=== PATIENT | female | born 1985 | race African-American/Black ===

== ENCOUNTER 2021-10-03 17:01 | Emergency (ER) | payer MEDICAID, OTHER ==
[~2021-10-03] VITALS: Ht 170.2 cm; Wt 72.6 kg
--- NOTE | 2021-10-03 17:11 | NUR ---
BIBS FOR C/O SOB X TODAY, RAN OUT OF INHALER. REQUESTING MED REFILL. IN ROOM AIR. RESPIRATION REGULAR AND UNLABORED. WILL CONTINUE TO MONITOR THE PATIENT.
[2021-10-03] MEDS ORDERED: PRED20TA PO (17:17)
[2021-10-03] MEDS ORDERED: ALBU18HF2 INH (17:17)
[2021-10-03] MEDS ORDERED: predniSONE 20 MG TABLET ONE (17:20)
[2021-10-03] MEDS ORDERED: IPRATROPIUM NEB FS 0.5 MG/2.5 ML AMPUL.NEB ONE (17:20)
[2021-10-03] MEDS ORDERED: ALBUTEROL FS 2.5 MG/3 ML VIAL.NEB ONE (17:20)
[2021-10-03] MEDS ORDERED: IPRATROPIUM NEB FS 0.5 MG/2.5 ML AMPUL.NEB NEB ONE (17:30)
[2021-10-03] MEDS ORDERED: ALBUTEROL FS 2.5 MG/3 ML VIAL.NEB NEB ONE (17:30)
[2021-10-03] MEDS ORDERED: predniSONE 20 MG TABLET PO ONE (17:30)
--- NOTE | 2021-10-03 18:22 | NUR ---
Patient discharged to home in stable condition. Written and verbal after care instructions given. Patient verbalizes understanding of instruction.
[2021-10-03 18:23] VITALS: BP 126/84
== END 2021-10-03 18:23 | disposition home or self-care (01) ==
LOC: ER 17:07
DX: J45.998 Other asthma (principal); F41.9 Anxiety disorder, unspecified; Z98.890 Other specified postprocedural states
CPT/HCPCS: 94640 ×2; 94799; 99285; J7512

== ENCOUNTER 2022-03-17 16:10 | Emergency (ER) | payer MEDICAID, OTHER ==
[~2022-03-17] VITALS: Ht 170.2 cm; Wt 68.0 kg
[~2022-03-17 16:10] MED LIST: ALBU18HF2 INH; PRED20TA PO
[2022-03-17 16:34] VITALS: BP 115/72
--- NOTE | 2022-03-17 16:34 | NUR ---
RASH,BOTH HANDS X 1 MONTH
[2022-03-17] MEDS ORDERED: TRIA15OI2 TP (20:35)
--- NOTE | 2022-03-17 20:43 | NUR ---
Patient discharged to home in stable condition. Written and verbal after care instructions given. Patient verbalizes understanding of instruction.
== END 2022-03-17 21:45 | disposition home or self-care (01) ==
LOC: ER 16:13
DX: R21 Rash and other nonspecific skin eruption (principal); J45.909 Unspecified asthma, uncomplicated; F41.9 Anxiety disorder, unspecified; Z79.52 Long term (current) use of systemic steroids; Z79.51 Long term (current) use of inhaled steroids
CPT/HCPCS: 36415; 86592; 86593